=== PATIENT | female | born 1940 | race Caucasian/White ===

== ENCOUNTER 2017-11-18 19:02 | Emergency (ER) | END 2017-11-19 02:50 | disposition home or self-care (01) ==

== ENCOUNTER 2018-08-29 12:11 | Emergency (ER) | payer MEDICARE, OTHER ==
[~2018-08-29] VITALS: Wt 59.1 kg
[~2018-08-29 12:11] MED LIST: ACET500C5 PO; ALBU18HF INHALATION; CEPH500C PO; CIPR500T4 PO; CITA20TA8 PO; CITROMA PO; ESOM40CA PO; HYDR-4011 PO; LISI-313 PO; LORA1TAB PO; MAGN296S40 PO; POLY17PO6 PO; RANI150T35 PO; TRAM50TA2 PO
[2018-08-29 12:22] VITALS: BP 134/62; PULSE 72; RESP 18
--- NOTE | 2018-08-29 13:45 | ERD ---
ER Documentation Chief Complaint Chief Complaint NECK PAIN X 1 WEEK HPI 78-year-old female, presents to the emergency department, complaining of chronic neck pain that has been getting worse during the last week since the patient started having upper respiratory symptoms. The patient states that the pain is sharp and worsened when the patient coughs. Otherwise, no fever, no chills, no chest pain, no shortness of breath. ROS All systems reviewed and are negative except as per history of present illness. Medications Home Meds Active Scripts Acetaminophen* (Tylenol*) 325 Mg Tablet, 2 TAB PO Q8 PRN for PAIN AND OR ELEVATED TEMP, #20 TAB Prov:MICAH SARMIENTO MD 08/29/18 Benzonatate* (Tessalon Perle*) 100 Mg Capsule, 100 MG PO Q8H PRN for COUGH, #20 CAP Prov:MICAH SARMIENTO MD 08/29/18 Tramadol HCl (Tramadol HCl) 50 Mg Tablet, 50 MG PO Q4 PRN for PAIN, #20 TAB Prov:AZUL ROBLES 11/19/17 Ciprofloxacin Hcl* (Ciprofloxacin Hcl*) 500 Mg Tablet, 500 MG PO BID for 7 Days, TAB Prov:AZUL ROBLES 11/19/17 Cephalexin* (Cephalexin*) 500 Mg Capsule, 500 MG PO Q8, #9 CAP Prov:MONICA HARPER DO 08/22/16 Hydrocodone/Acetaminophen ([place] 5-325 Tablet) 1 Each Tablet, 1 EACH PO Q6, #16 TAB Prov:MONICA HARPER DO 08/22/16 Ranitidine Hcl* (Zantac*) 150 Mg Tablet, 150 MG PO BID PRN for EPIGASTRIC PAIN, #30 TAB Prov:MONICA HARPER DO 08/22/16 Polyethylene Glycol* (Miralax*) 17 Gm Powd.pack, 17 GM PO DAILY, #7 Prov:MONICA HARPER DO 08/22/16 Magnesium Citrate* (Magnesium Citrate*) 296 Ml Solution, 296 ML PO ONCE, #1 BOTTLE Prov:MONICA HARPER DO 08/22/16 Acetaminophen* (Tylophen*) 500 Mg Capsule, 2 CAP PO Q8H PRN for PAIN AND OR ELEVATED TEMP, #20 CAP Prov:HAILEY ISLAS MD 07/31/16 Albuterol Sulfate* (Ventolin HFA*) 18 Gm Hfa.aer.ad, 2 PUFF INHALATION Q4H, #1 INHALER Prov:HAILEY ISLAS MD 07/31/16 Magnesium Citrate* (Citroma*) 300 Ml Soln, 300 ML PO DAILY PRN for CONSTIPATION for 5 Days, #1 BOTTLE Prov:HAILEY ISLAS MD 07/31/16 Reported Medications Lisinopril* (Lisinopril*) 5 Mg Tablet, 5 MG PO DAILY, TAB 11/22/15 Citalopram Hydrobromide* (Citalopram Hydrobromide*) 20 Mg Tablet, 20 MG PO DAILY, TAB 11/22/15 Esomeprazole Mag Trihydrate (Nexium) 40 Mg Capsule.dr, 40 MG PO DAILY 11/07/15 Lorazepam* (Lorazepam*) 1 Mg Tablet, 1 MG PO BID PRN for ANXIETY, #30 TAB 08/30/15 Allergies Allergies: Coded Allergies: morphine (Verified Allergy, Severe, vomiting etc, 08/29/18) PMhx/Soc History of Surgery: Yes (HYSTERECTOMY, ovary removal) Anesthesia Reaction: No Hx Neurological Disorder: No Hx Respiratory Disorders: No Hx Cardiac Disorders: Yes (HIGH CHOLESTEROL, HTN) Hx Psychiatric Problems: Yes (ANXIETY) Hx Miscellaneous Medical Probl: No (GERD, GASTRITIS, CONSTIPATION,THYROID) Hx Alcohol Use: No Hx Substance Use: No Hx Tobacco Use: No Physical Exam Vitals Vital Signs Date Temp Pulse Resp B/P (MAP) Pulse Ox O2 O2 Flow FiO2 Time Delivery Rate 08/29/18 98.1 72 18 134/62 99 12:22 (86) Physical Exam Const: No acute distress Head: Atraumatic Eyes: Normal Conjunctiva ENT: Normal External Ears, Nose and Mouth. Neck: Full range of motion. Bilateral muscle spasm. Resp: Clear to auscultation bilaterally Cardio: Regular rate and rhythm, no murmurs Abd: Soft, non tender, non distended. Normal bowel sounds Skin: No petechiae or rashes Back: No midline or flank tenderness Ext: No cyanosis, or edema Neur: Awake and alert Psych: Normal Mood and Affect Results 24 hrs Current Medications Medications Dose Sig/Naseem Start Time Status Last (Trade) Ordered Route PRN Stop Time Admin Dose Reason Admin Ketorolac 15 mg ONCE STAT 08/29/18 DC 08/29/18 Tromethamine IM 15:24 15:31 (Toradol) 08/29/18 15:25 Procedures/MDM Differential diagnosis include but not limited to: Respiratory infection bacterial/viral/fungal. Asthma, pneumonitis, allergies, GERD. Less likely for eign body aspiration, cardiac related, aspiration pneumonia, malignancy. Physical examination and clinical presentation consistent most likely with viral syndrome. During the ED course the patient remained stable, no new complaints. Clinical impression discussed with the patient who agrees with management. The patient is stable to be treated outpatient and will be discharged home. antibiotics not indicated at this time. some side effects of prescribed medications (headache, rash, nausea, vomiting, diarrhea, drowsiness, hypertension, interactions with other medications) were reviewed. The patient was instructed to follow up with the primary care provider in the next 48h. If symptoms persist, worsen or new symptoms develop, then patient should return to the ED immediately. Disclaimer: Inadvertent spelling and grammatical errors are likely due to EHR/dictation software use and do not reflect on the overall quality of patient care. Also, please note that the electronic time recorded on this note does not necessarily reflect the actual time of the patient encounter. Departure Diagnosis: Primary Impression: Neck pain Additional Impression: URI (upper respiratory infection) Condition: Stable Patient Instructions: Preventing Common Respiratory Infections, Neck Pain, No Trauma Additional Instructions: Muchas sri por [facility] para mckenzie servicio. Esperamos que en mckenzie visita a la mukesh de emergencia mckenzie problema medico haya sido solucionado y que se sienta mucho mejor. Para estar seguros que mckenzie mejoria sigue en proceso, le pedimos el favor de hacer jarett ye de seguimiento medico con mckenzie doctor primario en los proximos 2-4 yost. Lleve con usted estos documentos y las medicinas recetadas. Si jin sintomas empeoran, NO SE ESPERE, por favor regrese a mukesh de emergencia INMEDIATAMENTE. En briseida que usted no tenga un mdico de atencin primaria: Llame al mdico o clnica comunitaria de referencia que aparece abajo jax las horas de consultorio para hacer jarett ye para que le vean. CLINICAS: [place] [id number] [phone] [facility] [phone] [facility] [phone] [place] [id number] [phone] [place] [id number] [phone] [facility]. [phone] MICAH MCKINNEY MD Aug 29, 2018 13:45
[2018-08-29] MEDS ORDERED: KETOROLAC 15 MG INJ IM STA (15:24)
[2018-08-29] MEDS ORDERED: BENZ-6 PO (15:33)
[2018-08-29] MEDS ORDERED: ACET325T33 PO (15:37)
== END 2018-08-29 15:51 | disposition home or self-care (01) ==
LOC: FTE 12:11
DX: M54.2 Cervicalgia (principal); J06.9 Acute upper respiratory infection, unspecified; I10 Essential (primary) hypertension
CPT/HCPCS: 71046; J1885; 96372

== ENCOUNTER 2018-09-10 18:45 | Emergency (ER) | payer MEDICARE, OTHER ==
[~2018-09-10] VITALS: Wt 69.1 kg
[~2018-09-10 18:45] MED LIST changes: +ACET325T33 PO; +BENZ-6 PO
[2018-09-10] MEDS ORDERED: FAMOTIDINE 20 MG INJ IV STA (20:48)
[2018-09-10] MEDS ORDERED: LIDOCAINE/MYLANTA 40 ML BTL PO STA (20:48)
--- NOTE | 2018-09-10 21:24 | ERD ---
ER Documentation Chief Complaint Chief Complaint AP X'S 2 WEEKS HPI During the patient's encounter translation services were utilized Language: [Cambodian] Source: [in person] 78yoF with history of chronic abdominal pain secondary to gastritis and dyspepsia who presents to ED with abd pain. She has 14 days of epigastric abdominal burning consistent with her chronic pain. The patient has had the symptoms for at least 2 weeks. She went to [place] for similar symptoms and was told this is consistent with her gastritis. She states that this is very similar to her chronic issues but she gets very anxious when this happens and does not would know what else to do. Her daughter has brought her in because of this issue. She denies any chest pain or chest pressure, no exertional symptoms. No fevers or chills, no nausea vomiting or diarrhea. She additionally complains of some chronic left hip and left knee pain and states she was diagnosed with osteoarthritis. There is no acute change in this as well. ROS All systems reviewed and are negative except as per history of present illness. Medications Home Meds Active Scripts Sucralfate* (Carafate*) 1 Gm Tab, 1 GM PO WITH MEALS PRN for dyspepsia, #20 TAB Prov:HAILEY ISLAS MD 09/10/18 Reported Medications Esomeprazole Mag Trihydrate (Nexium) 40 Mg Capsule.dr, 40 MG PO DAILY, #30 CAP 09/10/18 Simvastatin* (Zocor*) 20 Mg Tablet, 20 MG PO QHS, #30 TAB 09/10/18 Lisinopril* (Lisinopril*) 5 Mg Tablet, 5 MG PO DAILY, #30 TAB 09/10/18 Lorazepam* (Lorazepam*) 1 Mg Tablet, 1 MG PO BID PRN for ANXIETY, #30 TAB 09/10/18 Discontinued Reported Medications Lisinopril* (Lisinopril*) 5 Mg Tablet, 5 MG PO DAILY, TAB 11/22/15 Citalopram Hydrobromide* (Citalopram Hydrobromide*) 20 Mg Tablet, 20 MG PO DAILY, TAB 11/22/15 Esomeprazole Mag Trihydrate (Nexium) 40 Mg Capsule.dr, 40 MG PO DAILY 11/07/15 Lorazepam* (Lorazepam*) 1 Mg Tablet, 1 MG PO BID PRN for ANXIETY, #30 TAB 08/30/15 Discontinued Scripts Acetaminophen* (Tylenol*) 325 Mg Tablet, 2 TAB PO Q8 PRN for PAIN AND OR ELEVATED TEMP, #20 TAB Prov:MICAH SARMIENTO MD 08/29/18 Benzonatate* (Tessalon Perle*) 100 Mg Capsule, 100 MG PO Q8H PRN for COUGH, #20 CAP Prov:MICAH SARMIENTO MD 08/29/18 Tramadol HCl (Tramadol HCl) 50 Mg Tablet, 50 MG PO Q4 PRN for PAIN, #20 TAB Prov:AZUL ROBLES 11/19/17 Ciprofloxacin Hcl* (Ciprofloxacin Hcl*) 500 Mg Tablet, 500 MG PO BID for 7 Days, TAB Prov:AZUL ROBLES 11/19/17 Cephalexin* (Cephalexin*) 500 Mg Capsule, 500 MG PO Q8, #9 CAP Prov:MONICA HARPER DO 08/22/16 Hydrocodone/Acetaminophen ([place] 5-325 Tablet) 1 Each Tablet, 1 EACH PO Q6, #16 TAB Prov:MONICA HARPER DO 08/22/16 Ranitidine Hcl* (Zantac*) 150 Mg Tablet, 150 MG PO BID PRN for EPIGASTRIC PAIN, #30 TAB Prov:MONICA HARPER DO 08/22/16 Polyethylene Glycol* (Miralax*) 17 Gm Powd.pack, 17 GM PO DAILY, #7 Prov:MONICA HARPER DO 08/22/16 Magnesium Citrate* (Magnesium Citrate*) 296 Ml Solution, 296 ML PO ONCE, #1 BOTTLE Prov:MONICA HARPER DO 08/22/16 Acetaminophen* (Tylophen*) 500 Mg Capsule, 2 CAP PO Q8H PRN for PAIN AND OR ELEVATED TEMP, #20 CAP Prov:HAILEY ISLAS MD 07/31/16 Albuterol Sulfate* (Ventolin HFA*) 18 Gm Hfa.aer.ad, 2 PUFF INHALATION Q4H, #1 INHALER Prov:HAILEY ISLAS MD 07/31/16 Magnesium Citrate* (Citroma*) 300 Ml Soln, 300 ML PO DAILY PRN for CONSTIPATION for 5 Days, #1 BOTTLE Prov:HAILEY ISLAS MD 07/31/16 Allergies Allergies: Coded Allergies: morphine (Verified Allergy, Severe, vomiting etc, 09/10/18) PMhx/Soc History of Surgery: Yes (HYSTERECTOMY, ovary removal) Anesthesia Reaction: No Hx Neurological Disorder: No Hx Respiratory Disorders: No Hx Cardiac Disorders: Yes (HIGH CHOLESTEROL, HTN) Hx Psychiatric Problems: Yes (ANXIETY) Hx Miscellaneous Medical Probl: No (GERD, GASTRITIS, CONSTIPATION,THYROID) Hx Alcohol Use: No Hx Substance Use: No Hx Tobacco Use: No FmHx Family History: No diabetes Physical Exam Vitals Vital Signs Date Temp Pulse Resp B/P (MAP) Pulse Ox O2 O2 Flow FiO2 Time Delivery Rate 09/10/18 65 26 136/75 97 Room Air 22:18 (95) 09/10/18 97.5 80 18 156/73 96 18:55 (100) Physical Exam General: Well developed, well nourished, no acute distress Head: Normocephalic, atraumatic. Eyes: Pupils equally reactive, EOM intact ENT: Moist mucous membranes Neck: Supple, no lymphadenopathy Respiratory: Lungs clear bilaterally, no distress Cardiovascular: RRR, no murmurs, rubs, or gallops Abdominal: Soft, non-tender, non-distended, no peritoneal signs, negative Whalen sign, no tenderness McBurney's point : Deferred MSK: No edema, no unilateral swelling, 5/5 strength, left knee with full active and passive range of motion, mild crepitus, no warmth or tenderness or swelling. Left hip with normal internal and external rotation Neurologic: Alert and oriented, moving all extremities, normal speech, no focal weakness, no cerebellar signs Skin: No rash Psych: Normal mood Result Diagram: 09/10/18210809/10/182108 Results 24 hrs Laboratory Tests Test 09/10/18 21:09 White Blood Count 8.7 10^3/ul Red Blood Count 3.97 10^6/ul Hemoglobin 12.0 g/dl Hematocrit 36.1 % Mean Corpuscular Volume 90.9 fl Mean Corpuscular Hemoglobin 30.2 pg Mean Corpuscular Hemoglobin Concent 33.2 g/dl Red Cell Distribution Width 12.9 % Platelet Count 228 10^3/UL Mean Platelet Volume 10.5 fl Immature Granulocytes % 0.200 % Neutrophils % 58.2 % Lymphocytes % 26.6 % Monocytes % 6.8 % Eosinophils % 7.9 % Basophils % 0.3 % Nucleated Red Blood Cells % 0.0 /100WBC Immature Granulocytes # 0.020 10^3/ul Neutrophils # 5.1 10^3/ul Lymphocytes # 2.3 10^3/ul Monocytes # 0.6 10^3/ul Eosinophils # 0.7 10^3/ul Basophils # 0.0 10^3/ul Nucleated Red Blood Cells # 0.0 10^3/ul Sodium Level 140 mmol/L Potassium Level 4.3 mmol/L Chloride Level 103 mmol/L Carbon Dioxide Level 30 mmol/L Anion Gap 7 Blood Urea Nitrogen 18 mg/dl Creatinine 0.94 mg/dl Est Glomerular Filtrat Rate mL/min mL/min Glucose Level 116 mg/dl Calcium Level 9.6 mg/dl Total Bilirubin 0.2 mg/dl Direct Bilirubin 0.00 mg/dl Indirect Bilirubin 0.2 mg/dl Aspartate Amino Transf (AST/SGOT) 25 IU/L Alanine Aminotransferase (ALT/SGPT) 10 IU/L Alkaline Phosphatase 106 IU/L Total Protein 7.6 g/dl Albumin 4.2 g/dl Globulin 3.40 g/dl Albumin/Globulin Ratio 1.23 Lipase 106 U/L Current Medications Medications Dose Sig/Naseem Start Time Status Last (Trade) Ordered Route PRN Stop Time Admin Dose Reason Admin Famotidine 20 mg ONCE STAT 09/10/18 DC 09/10/18 (Pepcid Iv) IV 20:48 21:27 09/10/18 20:49 40 ml ONCE STAT 09/10/18 DC 09/10/18 Miscellaneous PO 20:48 21:28 Medication 09/10/18 20:49 (Gi Cocktail (2)) Procedures/MDM LAB INTERPRETATION: * CBC reveals no evidence of infection * Chemistry without evidence of hepatobiliary obstruction MEDICAL DECISION MAKING: Reviewing the patient's electronic medical record she has multiple visits to the emergency room for abdominal pain related issues including multiple CT scans. The most recent bit of which was negative. The patient has chronic gastritis. This is consistent with her chronic gastritis and both location and character and severity. I believe her anxiety related to this is contributing to her visit today. She has a benign abdominal exam. While would have a low threshold for CT imaging in a 78-year-old the patient has had negative recent imaging. The patient has chronic abdominal symptoms and this is unchanged from her baseline. Given her benign exam, benign vital signs I do not believe that CT imaging is necessary unless laboratory testing shows evidence of red flags. Reassurance has been provided and the patient needs to follow-up with primary care physician for the subacute primary care related issues. ER COURSE: * The patient was given a GI cocktail * Symptoms improved. Laboratory testing reassuring. Patient can be discharged. CONSULTATION: [None] DISPOSITION PLAN: The patient does not have an identifiable emergent medical condition that warrants inpatient hospitalization at this time. The patient is deemed safe for discharge with outpatient follow-up. We discussed follow up with the patient's primary care doctor within 24 to 48 hours as needed. We also discussed return to the emergency room for worsening symptoms or worsening condition. Outpatient referral: [None required] Discharge Medications: Carafate Departure Diagnosis: Primary Impression: Epigastric abdominal pain Additional Impressions: Gastritis Gastritis type: unspecified gastritis Chronicity: chronic Gastritis bleeding: without bleeding Qualified Codes: K29.50 - Unspecified chronic gastritis without bleeding Anxiety Osteoarthritis of left knee Osteoarthritis type: unspecified Qualified Codes: M17.12 - Unilateral primary osteoarthritis, left knee Condition: Stable HAILEY ISLAS MD Sep 10, 2018 21:24
[2018-09-10] MEDS ORDERED: LORA1TAB PO (21:33)
[2018-09-10] MEDS ORDERED: LISI-313 PO (21:33)
[2018-09-10] MEDS ORDERED: ESOM40CA PO (21:34)
[2018-09-10] MEDS ORDERED: SIMV20TA PO (21:34)
[2018-09-10] MEDS ORDERED: SUCR1TAB56 PO (22:23)
[2018-09-10 22:28] VITALS: BP 149/66; PULSE 64; RESP 20
== END 2018-09-10 22:28 | disposition home or self-care (01) ==
LOC: E/R 18:45
DX: K29.50 Unspecified chronic gastritis without bleeding (principal); M17.12 Unilateral primary osteoarthritis, left knee; I10 Essential (primary) hypertension
CPT/HCPCS: 36415; 80053; 83690; 85025; 96374

== ENCOUNTER 2018-09-29 15:26 | Emergency (ER) | payer MEDICARE, OTHER ==
[~2018-09-29] VITALS: Ht 157.5 cm; Wt 59.4 kg
[~2018-09-29 15:26] MED LIST changes: -ACET325T33 PO; -ACET500C5 PO; -ALBU18HF INHALATION; -BENZ-6 PO; -CEPH500C PO; -CIPR500T4 PO; -CITA20TA8 PO; -CITROMA PO; -HYDR-4011 PO; -MAGN296S40 PO; -POLY17PO6 PO; -RANI150T35 PO; +SIMV20TA PO; +SUCR1TAB56 PO; -TRAM50TA2 PO
[2018-09-29 15:39] VITALS: Ht 157.5 cm; Wt 59.4 kg
--- NOTE | 2018-09-29 19:04 | ERD ---
ER Documentation Chief Complaint Chief Complaint c/o right sied abdominal pain radiating to back x2 weeks HPI 78-year-old female history of hypertension, hyperlipidemia, anxiety, GERD, gastritis, constipation, chronic abdominal pain, thyroid disease status post remote hysterectomy and cholecystectomy presents to the ED complaining of abdominal pain. Patient complains of crampy, squeezing abdominal pain which localizes to the epigastrium and right upper quadrant with radiation to the back. Denies nausea, vomiting, diarrhea but is chronically constipated. Patient was treated with gastritis with mild improvement but pain continues. She apparently was evaluated by GI last month and treated with Senokot with some relief. No other relieving or exacerbating factors. Denies dysuria, polyuria or hematuria. No chest pain, palpitations or shortness of breath. No fevers or chills. ROS All systems reviewed and are negative except as per history of present illness. Medications Home Meds Active Scripts Sucralfate* (Carafate*) 1 Gm Tab, 1 GM PO WITH MEALS PRN for dyspepsia, #20 TAB Prov:HAILEY ISLAS MD 09/10/18 Reported Medications Pantoprazole* (Pantoprazole*) 40 Mg Tablet.dr, 40 MG PO AC BREAKFAST, TAB 09/29/18 Esomeprazole Mag Trihydrate (Nexium) 40 Mg Capsule.dr, 40 MG PO DAILY, #30 CAP 09/10/18 Simvastatin* (Zocor*) 20 Mg Tablet, 20 MG PO QHS, #30 TAB 09/10/18 Lisinopril* (Lisinopril*) 5 Mg Tablet, 5 MG PO DAILY, #30 TAB 09/10/18 Lorazepam* (Lorazepam*) 1 Mg Tablet, 1 MG PO BID PRN for ANXIETY, #30 TAB 09/10/18 Allergies Allergies: Coded Allergies: morphine (Verified Allergy, Severe, vomiting etc, 09/29/18) PMhx/Soc Reviewed in chart. As per HPI. Lives with daughter. History of Surgery: Yes (Cholecystectomy, hysterectomy) Anesthesia Reaction: No Hx Neurological Disorder: No Hx Respiratory Disorders: No Hx Cardiac Disorders: Yes (HTN ) Hx Psychiatric Problems: Yes (Anxiety) Hx Miscellaneous Medical Probl: Yes (Chronic abdominal pain, gastritis, constipation. Hyperlipidemia. Thyroid.) Hx Alcohol Use: No Hx Substance Use: No Hx Tobacco Use: No FmHx No sudden cardiac or stroke Physical Exam Vitals Vital Signs Date Temp Pulse Resp B/P (MAP) Pulse Ox O2 O2 Flow FiO2 Time Delivery Rate 09/29/18 78 19 126/62 99 Room Air 21:09 (83) 09/29/18 98.9 72 20 123/57 96 15:39 (79) Physical Exam Const: Anxious, moderate distress Head: Atraumatic Eyes: Normal Conjunctiva. Anicteric ENT: Normal External Ears, Nose and Mouth. Mucous membranes are moist Neck: Full range of motion. Nontender. No JVD. No lymphadenopathy. No meningismus. Resp: Breath sounds equal bilaterally without murmurs gallops or rubs. Cardio: Regular rate and rhythm, no murmurs Abd: Soft, obese, non tender, non distended. Normal bowel sounds. No rebound or guarding. No masses or abnormal pulsations. Skin: No petechiae or rashes Back: No midline or CVA tenderness Ext: No cyanosis, or edema Neur: Awake and alert. No focal deficit observed. Cranial nerves II through XII are grossly intact. Psych: Cooperative, anxious but not depressed.. Result Diagram: 09/29/18191209/29/181912 Results 24 hrs Laboratory Tests Test 09/29/18 19:13 White Blood Count 8.9 10^3/ul Red Blood Count 4.10 10^6/ul Hemoglobin 12.2 g/dl Hematocrit 36.7 % Mean Corpuscular Volume 89.5 fl Mean Corpuscular Hemoglobin 29.8 pg Mean Corpuscular Hemoglobin Concent 33.2 g/dl Red Cell Distribution Width 13.1 % Platelet Count 260 10^3/UL Mean Platelet Volume 10.2 fl Immature Granulocytes % 0.200 % Neutrophils % 54.4 % Lymphocytes % 30.0 % Monocytes % 6.1 % Eosinophils % 8.7 % Basophils % 0.6 % Nucleated Red Blood Cells % 0.0 /100WBC Immature Granulocytes # 0.020 10^3/ul Neutrophils # 4.8 10^3/ul Lymphocytes # 2.7 10^3/ul Monocytes # 0.5 10^3/ul Eosinophils # 0.8 10^3/ul Basophils # 0.1 10^3/ul Nucleated Red Blood Cells # 0.0 10^3/ul Urine Color STRAW Urine Clarity CLEAR Urine pH 5.0 Urine Specific [place] 1.006 Urine Ketones NEGATIVE mg/dL Urine Nitrite NEGATIVE mg/dL Urine Bilirubin NEGATIVE mg/dL Urine Urobilinogen NEGATIVE mg/dL Urine Leukocyte Esterase TRACE Shayan/ul Urine Microscopic RBC 0 /HPF Urine Microscopic WBC 4 /HPF Urine Hemoglobin 1+ mg/dL Urine Glucose NEGATIVE mg/dL Urine Total Protein NEGATIVE mg/dl Sodium Level 140 mmol/L Potassium Level 3.7 mmol/L Chloride Level 101 mmol/L Carbon Dioxide Level 28 mmol/L Anion Gap 11 Blood Urea Nitrogen 17 mg/dl Creatinine 1.14 mg/dl Est Glomerular Filtrat Rate mL/min mL/min Glucose Level 98 mg/dl Calcium Level 9.6 mg/dl Total Bilirubin 0.2 mg/dl Direct Bilirubin 0.00 mg/dl Indirect Bilirubin 0.2 mg/dl Aspartate Amino Transf (AST/SGOT) 25 IU/L Alanine Aminotransferase (ALT/SGPT) 13 IU/L Alkaline Phosphatase 116 IU/L Total Protein 7.7 g/dl Albumin 4.1 g/dl Globulin 3.60 g/dl Albumin/Globulin Ratio 1.13 Lipase 79 U/L Current Medications Medications Dose Sig/Naseem Start Time Status Last (Trade) Ordered Route PRN Stop Time Admin Dose Reason Admin Sodium 500 ml @ Q1H STAT 09/29/18 DC 09/29/18 Chloride 500 mls/hr IV 19:48 20:03 09/29/18 20:47 Procedures/MDM DOCUMENTS REVIEWED: ED nurse, prior ED, prior records and prior imaging studies IMAGING: PROCEDURE: CT abdomen and pelvis without contrast. CLINICAL INDICATION: Abdominal Pain TECHNIQUE: CT scan of the abdomen and pelvis without contrast was performed and is reconstructed at 2.5 mm contiguous axial intervals from the dome of the diaphragm to the inferior pubic rami.. The patient was scanned without intravenous contrast. Sagittal and coronal reformatted images were obtained from the axial source images. The calculated radiation dose measures 460 mGy centimeters. The CTDI measures 9 mGy. Individualized dose optimization technique was used for the performance of this exam. This included 1. Automated exposure control. 2. Adjustment of the mA and / or kV according to the patient's size. 3. Use of iterative reconstructed technique. COMPARISON: CT abdomen pelvis November 19, 2017 FINDINGS: The lung bases are clear of any infiltrate or nodule. No effusion is seen. The liver is of normal size, contour and attenuation with no mass or ductal dilatation. Gallbladder has been removed. No splenic, adrenal or pancreatic abnormalities present. Kidneys are of normal size and contour. No hydronephrosis, calculus or masses seen. Ureters are of normal course and caliber with no stone. No bladder mass or stone is present. Uterus is been removed. No adnexal masses seen. There is no aneurysm. There is calcified plaque aorta and iliac arteries. No adenopathy is present. No bowel mass or obstruction is present. The appendix is normal. No phlegmon, ascites or pneumoperitoneum is visualized. The osseous structures are intact. IMPRESSION: No evidence of urolithiasis, obstructive uropathy, diverticulitis or appendicitis. Cholecystectomy. Vascular calcifications. .John Pacheco MD, MD Date Time Electronically viewed and signed by .John Pacheco MD, on 09/29/2018 19:28 .A/ MEDICAL DECISION MAKIN-year-old female history of hypertension, hyper lipidemia, anxiety, GERD, gastritis, constipation, chronic abdominal pain thyroid disease status post remote hysterectomy and cholecystectomy presents to the ED complaining of abdominal pain. CBC to evaluate for leukocytosis, anemia and thrombocytopenia is unremarkable. Chemistry to evaluate for renal insufficiency and electrolyte abnormalities significant for mildly elevated creatinine but no electrolyte abnormalities or hyperglycemia.. Liver function tests are negative for transaminitis and hyperbilirubinemia. Lipase to evaluate for pancreatitis is negative. CT of the abdomen and pelvis performed without intravenous contrast to evaluate for bowel obstruction, mass, colitis, abdominal aortic aneurysm, appendicitis and obstructive uropathy is negative. Patient presents with ongoing, chronic abdominal pain. Mesenteric ischemia is unlikely and CT angiogram is deferred. Symptoms likely exacerbated by her underlying anxiety disorder. Skin changes or herpes zoster. Pain decreased with intravenous ketorolac. Abdominal exam is completely benign without significant tenderness, rebound, guarding, signs of peritonitis or an occult intra-abdominal process. Pain resolved, tolerating p.o.'s and in the absence of signs of an acute serious disease process, patient is stable for discharge with precautionary instructions and outpatient GI follow-up as counseled. Counseled patient and daughter regarding diagnostic workup, diagnosis and need for followup. Understands to return to ED if symptoms recur, worsen or any other concerns. Departure Diagnosis: Primary Impression: Chronic generalized abdominal pain Additional Impression: Anxiety Condition: Stable MORGAN COLEMAN MD Sep 29, 2018 19:04
[2018-09-29] MEDS ORDERED: PANT40TA4 PO (19:30)
[2018-09-29] MEDS ORDERED: SOD CHLORIDE 0.9% 500 ML IV STA (19:48)
[2018-09-29 21:09] VITALS: BP 126/62; PULSE 78; RESP 19
== END 2018-09-29 21:22 | disposition home or self-care (01) ==
LOC: E/R 15:26
DX: R10.11 Right upper quadrant pain (principal); I10 Essential (primary) hypertension; F41.9 Anxiety disorder, unspecified
CPT/HCPCS: 36415; 74176; 80053; 81001; 83690; 85025; 99285; J7040

== ENCOUNTER → 2018-12-23 | Outpatient (CLI) | payer MEDICARE, OTHER ==
[~2018-12-23] MED LIST changes: +PANT40TA4 PO
--- NOTE | 2018-12-23 17:16 | CONS ---
Assessment/Plan Assessment/Plan Hospital Course (Demo Recall) 78-year-old female presenting with left knee pain acutely worse over the last 2 months. X-rays and MRI do demonstrate degenerative changes. There is moderate osteoarthritis of the medial compartment. MRI does demonstrate medial and lateral meniscus tear. Per radiology report this is compared to MRI from couple years ago with minimal change. On examination patient is most tender over the distal IT band as well as over her patella tendon. She does not have mechanical symptoms. She cannot take NSAIDs secondary to history of peptic ulcers She had a recent steroid injection therefore another injection will not be offered today. Recommending the patient start physical therapy for IT band tendinitis, meniscus tear, patellar tendinitis. Also like her to start an NSAID regimen. I like her to ask her primary care physician about Celebrex secondary to her history of peptic ulcers. Follow-up 3-month Consultation Date/Type/Reason Admit Date/Time Date of Consultation: Dec 23, 2018 Reason for Consultation Left knee pain Date/Time of Note DATE: 12/23/18 TIME: 17:05 Hx of Present Illness This is a 78-year-old female with a chief complaint of left knee pain. The pain began approximately 5 years ago but worse than last 2 months. The patients pain is in the anterior, lateral, posterior aspect of the left knee. Pain is not radiating to the lower leg. The pain is rated as a 9/10 and is described as sharp, stabbing, throbbing. Patient denies complaints of numbness or tingling. The pain is exacerbated by climbing stairs and ambulation. Patient has history of peptic ulcers and does not take NSAIDs. She has had both cortisone and ironic acid injections. She had a cortisone injection [address] Castillo she states this helped only for a few days. Denies mechanical symptoms. Patientn. Did not do focused physical therapy for the knee. She was in physical therapy but this is more for her neck. Duration: 5 years, but worse than last 2-month Injury: No Walking tolerance: Few blocks Limp: Yes Support: No Swelling: No Crepitation: Yes Instability: No Stairs: Difficult Physical Therapy: No focus therapy for knee Injections: Hyaluronic acid and steroid injection. Last injection was a steroid injection 2 weeks ago NSAIDs: Contraindicated. Patient with history of GERD and peptic ulcers Prior surgery: No Back pain: Yes Hip pain: No Risk of AVN : No Patient denies fever, chills, shortness of breath, chest pain, nausea/vomiting, constipation, diarrhea, numbness, and tingling. Past Medical History GERD Peptic ulcer disease Hypertension Hypothyroidism Osteoporosis Home Meds Active Scripts Sucralfate* (Carafate*) 1 Gm Tab, 1 GM PO WITH MEALS PRN for dyspepsia, #20 TAB Prov:HAILEY ISLAS MD 09/10/18 Reported Medications Pantoprazole* (Pantoprazole*) 40 Mg Tablet.dr, 40 MG PO AC BREAKFAST, TAB 09/29/18 Esomeprazole Mag Trihydrate (Nexium) 40 Mg Capsule.dr, 40 MG PO DAILY, #30 CAP 09/10/18 Simvastatin* (Zocor*) 20 Mg Tablet, 20 MG PO QHS, #30 TAB 09/10/18 Lisinopril* (Lisinopril*) 5 Mg Tablet, 5 MG PO DAILY, #30 TAB 09/10/18 Lorazepam* (Lorazepam*) 1 Mg Tablet, 1 MG PO BID PRN for ANXIETY, #30 TAB 09/10/18 Allergies: Coded Allergies: morphine (Verified Allergy, Severe, vomiting etc, 09/29/18) Past Surgical History Thyroidectomy Cholecystectomy Family History Significant Family History: no pertinent family hx Social History Alcohol Use: none Smoking Status: Never smoker Drug Use: none Exam/Review of Systems Exam Vitals Weight: 132 pound Height: 5 foot Temperature: 98.2 Heart Rate: 60 Blood Pressure: 138/64 Respiratory Rate: 12 Exam General: Alert, oriented x3. No Acute Distress. Heart: Regular rate and rhythm. Lungs: No respiratory distress. No accessory muscle use. Musculoskeletal: Left Knee This is a well developed female who is alert, oriented times three and in no apparent distress. Skin is intact over the left knee as well as the lower extremity with no abrasions, lacerations, or ulcerations. Observation of the patient's gait reveals an antalgic gait with No thrust. Frontal plane alignment is slight varus. There is pain on palpation of lateral much greater than medial joint line. Tender to palpation over distal IT band. The patient demonstrates grinding anteriorly with ROM. Range of motion: 0 extension to approximately 120 degrees of flexion. Collateral ligament testing reveals no instability with varus or valgus stress at 0 and 30 degrees of flexion. No Kateryna's and negative posterior drawer. Neurovascularly intact with 5/5 EHL/tibialis anterior/gastroc. Sensation intact to light touch in a sural, saphenous, deep peroneal, superficial peroneal, medial and lateral plantar nerve distribution. Palpable, symmetric dorsalis pedis and posterior tibial pulses in both lower extremities. Hip examination normal. Imaging Imaging The patient received a standard set of films today that were personally reviewed. Imaging included a standing bilateral knee AP, PA flexion, merchant views and a dedicated lateral of the affected knee: There is slight varus alignment of the knee. There is mild loss of joint space medial compartment(s). There is mild osteophyte formation. There is no subchondral sclerosis. There are no subchondral cysts. Degenerative changes are most severe in the medial compartment(s) MRI of the left knee dated 12/08/2018 was personally reviewed. Demonstrates degenerative tearing of medial meniscus root, posterior horn and body. There is a horizontal tear of the lateral meniscus. There is focal full- thickness cartilage loss in the medial compartment. Joint effusion. ISIAH MILLER MD Dec 23, 2018 17:15
--- NOTE | 2018-12-24 17:08 | RADRPT ---
PROCEDURE: XR Knees. CLINICAL INDICATION: Bilateral knee pain. TECHNIQUE: Total of eight views. Weightbearing frontal, oblique, and lateral views of the both kne es. Patellar views of both knees. COMPARISON: No prior study is available for comparison. FINDINGS: There is no fracture or dislocation. There are small bilateral joint effusions. There are degenerative changes with osteophytes arising from all 3 joint compartment margins bilatera lly. There is bilateral medial joint compartment narrowing. There is no lytic or blastic lesion. There is no radiopaque foreign body. IMPRESSION: 1. Small bilateral joint effusions. 2. Moderate degenerative changes of both knees. 3. Otherwise unremarkable study. RPTAT: QQ .Juliano Mari MD, MD Date Time Electronically viewed and signed by .Juliano Mari MD, on 12/24/2018 17:07 .R/
== END | disposition home or self-care (01) ==
LOC: HKI 14:43
PROVIDERS: ATTEND Orthopaedic Surgery Adult Reconstructive Orthopaedic Surgery
DX: S83.242A Other tear of medial meniscus, current injury, left knee, initial encounter (principal); S83.282A Other tear of lateral meniscus, current injury, left knee, initial encounter; X58.XXXA Exposure to other specified factors, initial encounter; Y92.89 Other specified places as the place of occurrence of the external cause; M17.12 Unilateral primary osteoarthritis, left knee
CPT/HCPCS: 73564; G0463

== ENCOUNTER 2019-01-06 12:31 | Emergency (ER) | payer MEDICARE, OTHER ==
[~2019-01-06] VITALS: Ht 152.4 cm; Wt 60.7 kg
[2019-01-06 12:37] VITALS: Ht 152.4 cm; Wt 60.7 kg
[2019-01-06] MEDS ORDERED: SOD CHLORIDE 0.9% 1,000 ML IV STA (13:14)
[2019-01-06] MEDS ORDERED: LIDOCAINE/MYLANTA 40 ML BTL PO STA (13:14)
[2019-01-06] MEDS ORDERED: KETOROLAC 30 MG INJ IV STA (13:14)
[2019-01-06] MEDS ORDERED: CIPR500T4 PO (16:52)
[2019-01-06] MEDS ORDERED: METR500T PO (16:52)
[2019-01-06] MEDS ORDERED: IBUP-1542 PO (16:52)
[2019-01-06 17:33] VITALS: BP 133/59; PULSE 60; RESP 16
--- NOTE | 2019-01-06 18:18 | ERD ---
ER Documentation Chief Complaint Chief Complaint abd pain x 10 days; denies vomiting; 2 days constipation HPI Patient is a 78-year-old female with hypertension and gastritis who presents with abdominal pain. The abdominal pain is diffuse. It comes and goes. She feels chills. She said the symptoms for the past 10 days. She denies fevers, vomiting, or diarrhea. She has had no treatment as of yet. Upon review of old medical records the patient has multiple visits to the ER for various complaints. Review of the emergency department information exchange system shows visits to 2 separate emergency departments for a total of 5 visits over the past 1 year. Her primary doctor is Dr. Sheppard. ROS All systems reviewed and are negative except as per history of present illness. Medications Home Meds Active Scripts Ibuprofen* (Motrin*) 600 Mg Tab, 600 MG PO Q6H PRN for PAIN AND OR ELEVATED TEMP, #30 TAB Prov:RENUKA RAMOS MD 01/06/19 Metronidazole* (Flagyl*) 500 Mg Tablet, 500 MG PO TID for 7 Days, TAB Prov:RENUKA RAMOS MD 01/06/19 Ciprofloxacin Hcl* (Ciprofloxacin Hcl*) 500 Mg Tablet, 500 MG PO BID for 7 Days, TAB Prov:RENUKA RAMOS MD 01/06/19 Reported Medications Pantoprazole* (Pantoprazole*) 40 Mg Tablet., 40 MG PO AC BREAKFAST, TAB 09/29/18 Simvastatin* (Zocor*) 20 Mg Tablet, 20 MG PO QHS, #30 TAB 09/10/18 Lisinopril* (Lisinopril*) 5 Mg Tablet, 5 MG PO DAILY, #30 TAB 09/10/18 Lorazepam* (Lorazepam*) 1 Mg Tablet, 1 MG PO BID PRN for ANXIETY, #30 TAB 09/10/18 Discontinued Reported Medications Esomeprazole Mag Trihydrate (Nexium) 40 Mg Capsule., 40 MG PO DAILY, #30 CAP 09/10/18 Discontinued Scripts Sucralfate* (Carafate*) 1 Gm Tab, 1 GM PO WITH MEALS PRN for dyspepsia, #20 TAB Prov:HAILEY ISLAS MD 09/10/18 Allergies Allergies: Coded Allergies: morphine (Verified Allergy, Severe, vomiting etc, 01/06/19) PMhx/Soc History of Surgery: Yes (Cholecystectomy, hysterectomy) Anesthesia Reaction: No Hx Neurological Disorder: No Hx Respiratory Disorders: No Hx Cardiac Disorders: Yes (HTN ) Hx Psychiatric Problems: Yes (Anxiety) Hx Miscellaneous Medical Probl: Yes (Chronic abdominal pain, gastritis, constipation. Hyperlipidemia. Thyroid.) Hx Alcohol Use: No Hx Substance Use: No Hx Tobacco Use: No Smoking Status: Never smoker FmHx Family History: diabetes Physical Exam Vitals Vital Signs Date Temp Pulse Resp B/P (MAP) Pulse Ox O2 O2 Flow FiO2 Time Delivery Rate 01/06/19 98.0 60 16 133/59 97 Room Air 17:33 (83) 01/06/19 98.0 64 20 142/65 97 Room Air 16:00 (90) 01/06/19 98.0 70 20 129/59 97 12:37 (82) Physical Exam Const: No acute distress Head: Atraumatic Eyes: Normal Conjunctiva ENT: Normal External Ears, Nose and Mouth. Neck: Full range of motion. No meningismus. Resp: Clear to auscultation bilaterally Cardio: Regular rate and rhythm, no murmurs Abd: Soft, diffuse tenderness to palpation without rebound or guarding Skin: No petechiae or rashes Back: No midline or flank tenderness Ext: No cyanosis, or edema Neur: Awake and alert Psych: Normal Mood and Affect Result Diagram: 01/06/19 1340 01/06/19 1340 Results 24 hrs Laboratory Tests Test 01/06/19 13:35 01/06/19 13:40 Bedside Glucose 96 mg/dL White Blood Count 7.7 10^3/ul Red Blood Count 4.41 10^6/ul Hemoglobin 13.0 g/dl Hematocrit 39.9 % Mean Corpuscular Volume 90.5 fl Mean Corpuscular Hemoglobin 29.5 pg Mean Corpuscular Hemoglobin Concent 32.6 g/dl Red Cell Distribution Width 13.7 % Platelet Count 225 10^3/UL Mean Platelet Volume 10.1 fl Immature Granulocytes % 0.400 % Neutrophils % 52.4 % Lymphocytes % 29.8 % Monocytes % 7.3 % Eosinophils % 9.7 % Basophils % 0.4 % Nucleated Red Blood Cells % 0.0 /100WBC Immature Granulocytes # 0.030 10^3/ul Neutrophils # 4.0 10^3/ul Lymphocytes # 2.3 10^3/ul Monocytes # 0.6 10^3/ul Eosinophils # 0.8 10^3/ul Basophils # 0.0 10^3/ul Nucleated Red Blood Cells # 0.0 10^3/ul Urine Color STRAW Urine Clarity CLEAR Urine pH 6.0 Urine Specific Ahmeek 1.016 Urine Ketones NEGATIVE mg/dL Urine Nitrite NEGATIVE mg/dL Urine Bilirubin NEGATIVE mg/dL Urine Urobilinogen NEGATIVE mg/dL Urine Leukocyte Esterase NEGATIVE Shayan/ul Urine Microscopic RBC 1 /HPF Urine Microscopic WBC 3 /HPF Urine Hemoglobin 1+ mg/dL Urine Glucose NEGATIVE mg/dL Urine Total Protein NEGATIVE mg/dl Sodium Level 143 mmol/L Potassium Level 3.8 mmol/L Chloride Level 102 mmol/L Carbon Dioxide Level 31 mmol/L Anion Gap 10 Blood Urea Nitrogen 22 mg/dl Creatinine 1.00 mg/dl Est Glomerular Filtrat Rate mL/min mL/min Glucose Level 96 mg/dl Calcium Level 10.1 mg/dl Total Bilirubin 0.3 mg/dl Direct Bilirubin 0.00 mg/dl Indirect Bilirubin 0.3 mg/dl Aspartate Amino Transf (AST/SGOT) 25 IU/L Alanine Aminotransferase (ALT/SGPT) 16 IU/L Alkaline Phosphatase 94 IU/L Troponin I < 0.012 ng/ml Total Protein 7.8 g/dl Albumin 4.3 g/dl Globulin 3.50 g/dl Albumin/Globulin Ratio 1.22 Lipase 85 U/L Current Medications Medications Dose Sig/Naseem Start Time Status Last (Trade) Ordered Route PRN Stop Time Admin Dose Reason Admin Sodium 1,000 ml @ Q1H STAT 01/06/19 DC 01/06/19 Chloride 1,000 mls/hr IV 13:14 01/06/19 13:42 14:13 40 ml ONCE STAT 01/06/19 DC 01/06/19 Miscellaneous PO 13:14 01/06/19 13:42 Medication 13:15 (Gi Cocktail (2)) Ketorolac 30 mg ONCE STAT 01/06/19 DC 01/06/19 Tromethamine IV 13:14 01/06/19 13:42 (Toradol) 13:15 Procedures/MDM CT scan shows mild diverticulitis per radiology. Patient is a 78-year-old female who presents with abdominal pain and chills. She was found to have mild diverticulitis. White blood cell count is normal and she is afebrile. I do not believe the patient requires admission to the hospital at this time. I believe outpatient management is appropriate but the patient will need close follow-up with the primary doctor within 24 to 48 hours for reevaluation. The patient will be given Cipro, Flagyl, and ibuprofen. Departure Diagnosis: Primary Impression: Diverticulitis Additional Impression: Abdominal pain Abdominal location: generalized Qualified Codes: R10.84 - Generalized abdominal pain Condition: Fair Patient Instructions: Abdominal Pain, Diverticulitis Additional Instructions: Llame al doctor MAANA y chance jarett RIGOBERTO PARA DENTRO DE 1-2 RUGGIERO.Dgale a la secretaria que nosotros le instruimos hacer esta rigoberto.Avise o llame si mckenzie condicin se empeora antes de la rigoberto. Regresa aqui si peor o no mejor. RENUKA RAMOS MD January 06, 2019 18:18
== END 2019-01-06 17:50 | disposition home or self-care (01) ==
LOC: E/R 12:31
DX: K57.32 Diverticulitis of large intestine without perforation or abscess without bleeding (principal); I10 Essential (primary) hypertension
CPT/HCPCS: 36415; 74176; 80053; 81001; 82962; 83690; 84484; 85025; 93005; 96374; 99285; J1885; J7030

== ENCOUNTER 2019-01-27 16:50 | Emergency (ER) | payer MEDICARE, OTHER ==
[~2019-01-27] VITALS: Ht 154.9 cm; Wt 51.3 kg
[~2019-01-27 16:50] MED LIST changes: +CIPR500T4 PO; -ESOM40CA PO; +IBUP-1542 PO; +METR500T PO; -SUCR1TAB56 PO
[2019-01-27 16:54] VITALS: Ht 154.9 cm; Wt 51.3 kg
[2019-01-27] MEDS ORDERED: LIDOCAINE/MYLANTA 40 ML BTL PO STA (17:39)
[2019-01-27] MEDS ORDERED: FAMOTIDINE 20 MG INJ IV STA (17:39)
[2019-01-27] MEDS ORDERED: SOD CHLORIDE 0.9% 250 ML IV STA (19:20)
[2019-01-27] MEDS ORDERED: SUCR1TAB56 PO (19:37)
[2019-01-27] MEDS ORDERED: SODIUM CHLORIDE 0.9% 250 ML BAG IV* SCH (19:45)
[2019-01-27 19:55] VITALS: BP 134/71; PULSE 65; RESP 16
--- NOTE | 2019-01-27 20:51 | ERD ---
ER Documentation Chief Complaint Chief Complaint abd pain x 2 weeks with nausea HPI During the patient's encounter translation services were utilized Language: Indonesian Source: Video 78-year-old female who presents to the emergency room complaining of epigastric abdominal burning and bloating radiating into her esophagus that feels extremely similar to dyspepsia and reflux before. She describes worsening symptoms with eating. She denies any chest pressure or exertional symptoms, no ripping or tearing pain, no pain into the middle of her back. She denies any nausea, vomiting, diarrhea, constipation. ROS All systems reviewed and are negative except as per history of present illness. Medications Home Meds Active Scripts Sucralfate* (Carafate*) 1 Gm Tab, 1 GM PO WITH MEALS, #20 TAB Prov:HAILEY ISLAS MD 01/27/19 Ibuprofen* (Motrin*) 600 Mg Tab, 600 MG PO Q6H PRN for PAIN AND OR ELEVATED TEMP, #30 TAB Prov:RENUKA RAMOS MD 01/06/19 Reported Medications Pantoprazole* (Pantoprazole*) 40 Mg Tablet.dr, 40 MG PO AC BREAKFAST, TAB 09/29/18 Simvastatin* (Zocor*) 20 Mg Tablet, 20 MG PO QHS, #30 TAB 09/10/18 Lisinopril* (Lisinopril*) 5 Mg Tablet, 5 MG PO DAILY, #30 TAB 09/10/18 Lorazepam* (Lorazepam*) 1 Mg Tablet, 1 MG PO BID PRN for ANXIETY, #30 TAB 09/10/18 Discontinued Scripts Metronidazole* (Flagyl*) 500 Mg Tablet, 500 MG PO TID for 7 Days, TAB Prov:RENUKA RAMOS MD 01/06/19 Ciprofloxacin Hcl* (Ciprofloxacin Hcl*) 500 Mg Tablet, 500 MG PO BID for 7 Days, TAB Prov:RENUKA RAMOS MD 01/06/19 Allergies Allergies: Coded Allergies: morphine (Verified Allergy, Severe, vomiting etc, 01/27/19) PMhx/Soc History of Surgery: Yes (Cholecystectomy, hysterectomy) Anesthesia Reaction: No Hx Neurological Disorder: No Hx Respiratory Disorders: No Hx Cardiac Disorders: Yes (HTN ) Hx Psychiatric Problems: Yes (Anxiety) Hx Miscellaneous Medical Probl: Yes (Chronic abdominal pain, gastritis, constipation. Hyperlipidemia. Thyroid.) Hx Alcohol Use: No Hx Substance Use: No Hx Tobacco Use: No Smoking Status: Never smoker FmHx Family History: No diabetes Physical Exam Vitals Vital Signs Date Temp Pulse Resp B/P (MAP) Pulse Ox O2 O2 Flow FiO2 Time Delivery Rate 01/27/19 98.0 65 16 134/71 100 Room Air 19:55 (92) 01/27/19 98.3 77 16 124/57 97 16:54 (79) Physical Exam General: Well developed, well nourished, no acute distress Head: Normocephalic, atraumatic. Eyes: Pupils equally reactive, EOM intact ENT: Moist mucous membranes Neck: Supple, no lymphadenopathy Respiratory: Lungs clear bilaterally, no distress Cardiovascular: RRR, no murmurs, rubs, or gallops Abdominal: Soft, non-tender, non-distended, no peritoneal signs : Deferred MSK: No edema, no unilateral swelling, 5/5 strength Neurologic: Alert and oriented, moving all extremities, normal speech, no focal weakness, no cerebellar signs Skin: No rash Psych: Normal mood Result Diagram: 01/27/19 1806 01/27/19 1806 Results 24 hrs Laboratory Tests Test 01/27/19 18:06 White Blood Count 7.4 10^3/ul Red Blood Count 4.12 10^6/ul Hemoglobin 12.2 g/dl Hematocrit 37.5 % Mean Corpuscular Volume 91.0 fl Mean Corpuscular Hemoglobin 29.6 pg Mean Corpuscular Hemoglobin Concent 32.5 g/dl Red Cell Distribution Width 14.1 % Platelet Count 229 10^3/UL Mean Platelet Volume 10.4 fl Immature Granulocytes % 0.100 % Neutrophils % 53.5 % Lymphocytes % 29.3 % Monocytes % 9.2 % Eosinophils % 7.5 % Basophils % 0.4 % Nucleated Red Blood Cells % 0.0 /100WBC Immature Granulocytes # 0.010 10^3/ul Neutrophils # 3.9 10^3/ul Lymphocytes # 2.2 10^3/ul Monocytes # 0.7 10^3/ul Eosinophils # 0.6 10^3/ul Basophils # 0.0 10^3/ul Nucleated Red Blood Cells # 0.0 10^3/ul Sodium Level 140 mmol/L Potassium Level 4.7 mmol/L Chloride Level 102 mmol/L Carbon Dioxide Level 30 mmol/L Anion Gap 8 Blood Urea Nitrogen 19 mg/dl Creatinine 1.00 mg/dl Est Glomerular Filtrat Rate mL/min mL/min Glucose Level 125 mg/dl Calcium Level 9.4 mg/dl Total Bilirubin 0.5 mg/dl Direct Bilirubin 0.00 mg/dl Indirect Bilirubin 0.5 mg/dl Aspartate Amino Transf (AST/SGOT) 25 IU/L Alanine Aminotransferase (ALT/SGPT) 12 IU/L Alkaline Phosphatase 69 IU/L Troponin I < 0.012 ng/ml Total Protein 7.6 g/dl Albumin 4.3 g/dl Globulin 3.30 g/dl Albumin/Globulin Ratio 1.30 Lipase 100 U/L Current Medications Medications Dose Sig/Naseem Start Time Status Last (Trade) Ordered Route PRN Stop Time Admin Dose Reason Admin Famotidine 20 mg ONCE STAT 01/27/19 DC 01/27/19 (Pepcid Iv) IV 17:39 18:03 01/27/19 17:41 40 ml ONCE STAT 01/27/19 DC 01/27/19 Miscellaneous PO 17:39 18:03 Medication 01/27/19 17:41 (Gi Cocktail (2)) Sodium 250 ml @ Q1H STAT 01/27/19 DC Chloride 250 mls/hr IV 19:20 01/27/19 19:57 Sodium 250 ml ONCE IV* 01/27/19 DC 01/27/19 Chloride 19:45 19:39 (NS) 01/27/19 19:46 Procedures/MDM EKG, MONITORS, & DIAGNOSTIC IMAGING: EKG: I reviewed and interpreted a 12-lead EKG. Rhythm: Normal sinus rhythm ST Changes: No contiguous ST segment elevations T waves: No contiguous T wave inversions Impression: No evidence of acute cardiac ischemia LAB INTERPRETATION: I reviewed the laboratory testing and it shows no evidence of acute process MEDICAL DECISION MAKING: The patient's presentation is likely consistent with dyspepsia. She does describe a history of this. The patient gives a very classic burning migratory description to her pain. The patient has an otherwise benign abdominal exam without signs or symptoms concerning for acute vascular or cardiac etiology. Patient has a long-standing history of gastritis and dyspepsia and this feels exactly similar. ER COURSE: * Patient's laboratory testing and EKG showed no evidence of alternative process. No evidence of cardiac ischemia. Patient given a GI cocktail. The patient demanded a small bolus of fluid which was provided. At this point the patient is feeling much better. She is already taking a PPI. I will add sucralfate and the patient needs to follow-up with her primary care physician. * At this time the patient is feeling better and can be safely discharged. CONSULTATION: None DISPOSITION PLAN: The patient does not have an identifiable emergent medical condition that warrants inpatient hospitalization at this time. The patient is deemed safe for discharge with outpatient follow-up. We discussed follow up with the patient's primary care doctor within 24 to 48 hours as needed. We also discussed return to the emergency room for worsening symptoms or worsening condition. Outpatient referral: None required Discharge Medications: Sucralfate Departure Diagnosis: Primary Impression: GERD (gastroesophageal reflux disease) Esophagitis presence: without esophagitis Qualified Codes: K21.9 - Gastro- esophageal reflux disease without esophagitis Additional Impression: Abdominal pain Abdominal location: epigastric Qualified Codes: R10.13 - Epigastric pain Condition: Stable Patient Instructions: Gerd (Adult) Additional Instructions: Llame al doctor nomsaud kellyjo (Referral Sources) MAANA y chance jarett RIGOBERTO PARA DENTRO DE JARETT SEMANA. Dgale a la secretaria que nosotros le instruimos hacer esta rigoberto.Avise o llame si mckenzie condicin se empeora antes de la rigoberto. HAILEY ISLAS MD January 27, 2019 20:51
== END 2019-01-27 19:57 | disposition home or self-care (01) ==
LOC: E/R 16:50
DX: K21.9 Gastro-esophageal reflux disease without esophagitis (principal); I10 Essential (primary) hypertension
CPT/HCPCS: 36415; 80053; 83690; 84484; 85025; 93005; 96374; 99284; J7040; J7050

== ENCOUNTER 2019-02-20 14:26 | Emergency (ER) | payer MEDICARE, OTHER ==
[~2019-02-20] VITALS: Ht 152.4 cm; Wt 60.0 kg
[~2019-02-20 14:26] MED LIST changes: -CIPR500T4 PO; -METR500T PO; +SUCR1TAB56 PO
[2019-02-20 14:31] VITALS: BP 141/67; PULSE 87; RESP 18; Ht 152.4 cm; Wt 60.0 kg
[2019-02-20] MEDS ORDERED: LIDOCAINE/MYLANTA 40 ML BTL PO STA (15:27)
[2019-02-20] MEDS ORDERED: FAMOTIDINE 20 MG TAB PO STA (15:27)
[2019-02-20] MEDS ORDERED: DEXL30CA2 PO (16:12)
[2019-02-20] MEDS ORDERED: SUCR1TAB56 PO (16:30)
[2019-02-20] MEDS ORDERED: METOCLOPRAMIDE 10 MG INJ IV ONE (16:30)
[2019-02-20] MEDS ORDERED: FAMO-96 PO (16:30)
--- NOTE | 2019-02-20 16:44 | ERD ---
ER Documentation Chief Complaint Chief Complaint EPIGASTRIC PAIN WITH NAUSEA HPI 78-year-old female presenting with over 1 month of epigastric burning pain radiating to her back and up her mid chest. The pain is constant, daily, with no alleviating or exacerbating factors. She is on Dexilant and has also tried Prilosec without relief of her symptoms. Per her records, the patient has been here multiple times for similar symptoms. Her symptoms have not changed but are not improving. Her pain is an 8 out of 10, burning. She recently saw a GI doctor that referred her for a CT scan but has not scheduled an endoscopy yet. Her last endoscopy was about 3 years ago, at which time she was diagnosed with gastritis but did not have ulcers per the patient. ROS All systems reviewed and are negative except as per history of present illness. Medications Home Meds Active Scripts Sucralfate* (Carafate*) 1 Gm Tab, 1 GM PO QID for 30 Days, TAB Isabell antes de comer Prov:PORFIRIO CHRISTINA MD 02/20/19 Famotidine* (Pepcid*) 20 Mg Tablet, 20 MG PO BID for 30 Days, TAB Prov:PORFIRIO CHRISTINA MD 02/20/19 Reported Medications Dexlansoprazole (Dexilant) 30 Mg Henrry., 30 MG PO DAILY, #30 CAP 02/20/19 Simvastatin* (Zocor*) 20 Mg Tablet, 20 MG PO QHS, #30 TAB 09/10/18 Lisinopril* (Lisinopril*) 5 Mg Tablet, 5 MG PO DAILY, #30 TAB 09/10/18 Lorazepam* (Lorazepam*) 1 Mg Tablet, 1 MG PO BID PRN for ANXIETY, #30 TAB 09/10/18 Discontinued Reported Medications Pantoprazole* (Pantoprazole*) 40 Mg Tablet., 40 MG PO AC BREAKFAST, TAB 09/29/18 Discontinued Scripts Sucralfate* (Carafate*) 1 Gm Tab, 1 GM PO WITH MEALS, #20 TAB Prov:HAILEY ISLAS MD 01/27/19 Ibuprofen* (Motrin*) 600 Mg Tab, 600 MG PO Q6H PRN for PAIN AND OR ELEVATED TEMP, #30 TAB Prov:RENUKA RAMOS MD 01/06/19 Allergies Allergies: Coded Allergies: morphine (Verified Allergy, Severe, vomiting etc, 02/20/19) PMhx/Soc History of Surgery: Yes (Cholecystectomy, hysterectomy) Anesthesia Reaction: No Hx Neurological Disorder: No Hx Respiratory Disorders: No Hx Cardiac Disorders: Yes (HTN ) Hx Psychiatric Problems: Yes (Anxiety) Hx Miscellaneous Medical Probl: Yes (Chronic abdominal pain, gastritis, constipation. Hyperlipidemia. Thyroid.) Hx Alcohol Use: No Hx Substance Use: No Hx Tobacco Use: No Smoking Status: Never smoker FmHx Family History: No diabetes Physical Exam Vitals Vital Signs Date Temp Pulse Resp B/P (MAP) Pulse Ox O2 O2 Flow FiO2 Time Delivery Rate 02/20/19 97.7 87 18 141/67 98 14:31 (91) Physical Exam Const: No acute distress Head: Atraumatic Eyes: Normal Conjunctiva ENT: Normal External Ears, Nose and Mouth. Neck: Full range of motion. No meningismus. Resp: Clear to auscultation bilaterally Cardio: Regular rate and rhythm, no murmurs Abd: Soft, non tender, non distended. No masses. Normal bowel sounds Skin: No petechiae or rashes Back: No midline or flank tenderness Ext: No cyanosis, or edema Neur: Awake and alert Psych: Normal Mood and Affect Result Diagram: 02/20/19 1538 02/20/19 1538 Results 24 hrs Laboratory Tests Test 02/20/19 15:38 White Blood Count 7.2 10^3/ul Red Blood Count 4.31 10^6/ul Hemoglobin 12.7 g/dl Hematocrit 38.7 % Mean Corpuscular Volume 89.8 fl Mean Corpuscular Hemoglobin 29.5 pg Mean Corpuscular Hemoglobin Concent 32.8 g/dl Red Cell Distribution Width 13.3 % Platelet Count 244 10^3/UL Mean Platelet Volume 10.0 fl Immature Granulocytes % 0.100 % Neutrophils % 55.5 % Lymphocytes % 32.0 % Monocytes % 7.3 % Eosinophils % 4.7 % Basophils % 0.4 % Nucleated Red Blood Cells % 0.0 /100WBC Immature Granulocytes # 0.010 10^3/ul Neutrophils # 4.0 10^3/ul Lymphocytes # 2.3 10^3/ul Monocytes # 0.5 10^3/ul Eosinophils # 0.3 10^3/ul Basophils # 0.0 10^3/ul Nucleated Red Blood Cells # 0.0 10^3/ul Urine Color COLORLESS Urine Clarity CLEAR Urine pH 7.0 Urine Specific [place] 1.003 Urine Ketones NEGATIVE mg/dL Urine Nitrite NEGATIVE mg/dL Urine Bilirubin NEGATIVE mg/dL Urine Urobilinogen NEGATIVE mg/dL Urine Leukocyte Esterase TRACE Shayan/ul Urine Microscopic RBC 0 /HPF Urine Microscopic WBC 3 /HPF Urine Bacteria FEW /HPF Urine Hemoglobin 1+ mg/dL Urine Glucose NEGATIVE mg/dL Urine Total Protein NEGATIVE mg/dl Sodium Level 143 mmol/L Potassium Level 4.1 mmol/L Chloride Level 101 mmol/L Carbon Dioxide Level 30 mmol/L Anion Gap 12 Blood Urea Nitrogen 20 mg/dl Creatinine 1.04 mg/dl Est Glomerular Filtrat Rate mL/min mL/min Glucose Level 106 mg/dl Calcium Level 9.8 mg/dl Total Bilirubin 0.6 mg/dl Direct Bilirubin 0.00 mg/dl Indirect Bilirubin 0.6 mg/dl Aspartate Amino Transf (AST/SGOT) 28 IU/L Alanine Aminotransferase (ALT/SGPT) 21 IU/L Alkaline Phosphatase 87 IU/L Troponin I Pending Total Protein 8.1 g/dl Albumin 4.4 g/dl Globulin 3.70 g/dl Albumin/Globulin Ratio 1.18 Lipase 94 U/L Current Medications Medications Dose Sig/Naseem Start Time Status Last (Trade) Ordered Route PRN Stop Time Admin Dose Reason Admin Famotidine 20 mg ONCE STAT 02/20/19 DC 02/20/19 (Pepcid) PO 15:27 15:41 02/20/19 15:28 40 ml ONCE STAT 02/20/19 DC 02/20/19 Miscellaneous PO 15:27 15:41 Medication 02/20/19 15:28 (Gi Cocktail (2)) 10 mg ONCE ONCE 02/20/19 DC Metoclopramid IV 16:30 e HCl 02/20/19 16:31 (Reglan) Procedures/MDM EMERGENT LABS AND DIAGNOSTIC STUDIES: Lab Results above were reviewed and interpreted by me. CBC: no anemia or evidence of infection CMP: No evidence of clinically significant electrolyte abnormality, acidosis, renal failure, hypoglycemia, liver disease, or biliary obstruction Lipase: no evidence of pancreatitis Troponin within normal limits, not indicative of cardiac ischemia 12-lead EKG was interpreted by Andrea Christina MD: Normal Sinus Rhythm Bifascicular block No acute ST or T wave changes suggestive of acute ischemia or STEMI. Initial Nursing notes reviewed. Previous Medical Records requested via the Electronic Health Record. EMERGENCY DEPARTMENT COURSE / MEDICAL DECISION MAKING: Patient is presenting with chronic epigastric burning pain, most consistent with gastritis. Vitals are unremarkable. However given her age, cardiac work-up was done as well and does not show any signs of acute cardiac ischemia. I reviewed her records and it seems like the patient has been here multiple times for similar symptoms. Her last CT abdomen and pelvis was done on January 06 and showed evidence of diverticulitis of the sigmoid colon but no other abnormalities. She was treated with GI cocktail and Pepcid. I do not feel she needs any further work-up or admission. I have a low suspicion for acute surgical abdomen. I recommended follow-up with her GI doctor to discuss possibly repeating her endoscopy. In the meantime, a prescription for Pepcid and sucralfate will be given. Patient's blood pressure was elevated (>120/80) but appears stable without evidence of hypertensive emergency or urgency. The patient was counseled about the risks of hypertension and urged to pursue outpatient monitoring and therapy within a week with their primary care physician. Departure Diagnosis: Primary Impression: Gastritis Gastritis type: other gastritis Chronicity: chronic Gastritis bleeding: without bleeding Qualified Codes: K29.50 - Unspecified chronic gastritis without bleeding Additional Impression: Constipation - functional Condition: Stable Patient Instructions: Constipation (Adult), Gastritis Vs. Ulcer PORFIRIO CHRISTINA MD Feb 20, 2019 16:43
== END 2019-02-20 17:31 | disposition home or self-care (01) ==
LOC: E/R 14:26
DX: K59.00 Constipation, unspecified (principal); I10 Essential (primary) hypertension; K29.50 Unspecified chronic gastritis without bleeding
CPT/HCPCS: 80053; 81001; 83690; 84484; 85025; 93005; J2765; 36415; 96374

== ENCOUNTER 2019-04-21 11:41 | Emergency (ER) | payer MEDICARE, OTHER ==
[~2019-04-21] VITALS: Ht 121.9 cm; Wt 59.7 kg
[~2019-04-21 11:41] MED LIST changes: +DEXL30CA2 PO; +FAMO-96 PO; -PANT40TA4 PO; +POLY17PO6 PO; +TRAM50TA2 PO
[2019-04-21 11:51] VITALS: Ht 121.9 cm; Wt 59.7 kg
[2019-04-21 13:16] VITALS: BP 132/82; PULSE 67; RESP 17
== END 2019-04-21 14:56 | disposition home or self-care (01) ==
LOC: E/R 11:41
DX: M54.5 Low back pain (principal); K59.00 Constipation, unspecified; I10 Essential (primary) hypertension; R40.2142 Coma scale, eyes open, spontaneous, at arrival to emergency department; R40.2252 Coma scale, best verbal response, oriented, at arrival to emergency department; R40.2362 Coma scale, best motor response, obeys commands, at arrival to emergency department
CPT/HCPCS: 36415; 80053; 81003; 83690; 85025; 99283

== ENCOUNTER 2019-06-29 11:21 | Emergency (ER) | payer MEDICARE, OTHER ==
[~2019-06-29] VITALS: Ht 157.5 cm; Wt 79.0 kg
[~2019-06-29 11:21] MED LIST changes: +D-ME473S2 PO; +DEXL60CA2 PO; +MENT5.8L4 MM; -SUCR1TAB56 PO
[2019-06-29 11:24] VITALS: Ht 157.5 cm; Wt 79.0 kg
[2019-06-29] MEDS ORDERED: FAMOTIDINE 20 MG INJ IV STA (14:03)
[2019-06-29] MEDS ORDERED: ONDANSETRON 4 MG INJ IV STA (14:03)
[2019-06-29] MEDS ORDERED: AL HYDROX/MG HYDROX/SIMETH 30 ML CUP PO ONE (14:30)
[2019-06-29 15:28] VITALS: BP 129/75; PULSE 62; RESP 18
== END 2019-06-29 15:29 | disposition home or self-care (01) ==
LOC: E/R 11:21
DX: K29.00 Acute gastritis without bleeding (principal); R40.2142 Coma scale, eyes open, spontaneous, at arrival to emergency department; R40.2362 Coma scale, best motor response, obeys commands, at arrival to emergency department; R40.2252 Coma scale, best verbal response, oriented, at arrival to emergency department; I10 Essential (primary) hypertension; K59.00 Constipation, unspecified
CPT/HCPCS: 80053; 81001; 83690; 84484; 85025; 93005; 96374; 96375; 99284; J2405

== ENCOUNTER 2019-07-03 15:10 | Emergency (ER) | payer MEDICARE, OTHER ==
[~2019-07-03] VITALS: Ht 152.4 cm; Wt 61.8 kg
[~2019-07-03 15:10] MED LIST changes: -DEXL30CA2 PO; -SIMV20TA PO; -TRAM50TA2 PO
[2019-07-03 15:14] VITALS: Ht 152.4 cm; Wt 61.8 kg
[2019-07-03] MEDS: IBUPROFEN 600 MG TAB PO ONE ×2 (17:45→17:51)
[2019-07-03] MEDS ORDERED: ACETAMINOPHEN 500 MG TAB PO STA (17:52)
[2019-07-03] MEDS ORDERED: GUAIFENESIN/DM (SR) TAB PO ONE (18:00)
[2019-07-03 18:45] VITALS: BP 134/78; PULSE 75; RESP 20
== END 2019-07-03 18:45 | disposition home or self-care (01) ==
LOC: FTE 15:10
DX: R06.9 Unspecified abnormalities of breathing (principal)
CPT/HCPCS: 71046